=== PATIENT | male | born 1985 | race Caucasian/White ===

== ENCOUNTER 2017-03-14 14:55 | Emergency (ER) | payer OTHER ==
[~2017-03-14] VITALS: Ht 175.3 cm; Wt 72.7 kg
[2017-03-14] MEDS ORDERED: ZUBSOLV 5.7-1.1 EACH SL (15:38)
[2017-03-14] MEDS ORDERED: VENTOLIN HFA18 GM IH (15:38)
[2017-03-14] MEDS ORDERED: BUSPIRONE HCL10 MG PO (15:38)
[2017-03-14] MEDS ORDERED: KLONOPIN0.5 M1 PO (15:39)
[2017-03-14] MEDS ORDERED: LITHIUM CARBON300 MG PO (15:39)
[2017-03-14] MEDS ORDERED: CLEOCIN300 MG PO (15:49)
[2017-03-14 16:18] VITALS: BP 128/78
== END 2017-03-14 16:33 | disposition home or self-care (01) ==
LOC: EME 14:55
DX: L73.9 Follicular disorder, unspecified (principal); J45.909 Unspecified asthma, uncomplicated; F17.200 Nicotine dependence, unspecified, uncomplicated
CPT/HCPCS: 99281; 99284